=== PATIENT | male | born 1980 | race Caucasian/White ===

== ENCOUNTER 2016-11-29 10:41 | Observation (INO) ==
[2016-11-29] MEDS ORDERED: Ondansetron 4 MG/2 ML VIAL IVP PRN (14:33)
[2016-11-29] MEDS ORDERED: *HR* HYDROmorphone (PF) 1 MG/ML SYRINGE IVP PRN (14:33)
--- NOTE | 2016-11-29 14:40 | General Surg History&Physical ---
Date of Encounter: 11/29/16 Time of Encounter: 14:37 Assessment and Plan (1) Perianal abscess Current Visit: No Status: Acute The assessment and plan as outlined above was discussed with the patient and/or family members who expressed understanding and agreement. All questions were answered. I explained to the patient at this time he has evidence of induration of the perianal area with no true abscess. I do agree with IV antibiotics and pain control and will determine whether or not the area resolves on its own, spontaneously drains, or requires incision and drainage procedure. Will follow. Patient agrees with the above plan. History of Present Illness Chief complaint: Perianal pain HPI: Mr. Mc is a 36 year old male with a past medical history significant for hypertension, anxiety, arthritis, and back pain/cervical radiculopathy states that yesterday he had the onset of perianal pain and some swelling. He said the pain has been continuous in nature and because of the persistent nature that lasted throughout the night. He states he does have some mucous discharge and has had some mild blood with wiping. The tenderness is located in the same area he had a previous perianal abscess drainage procedure performed in [place] earlier this year. He states that the incision site with the drainage was performed and just healed possibly 2-3 weeks ago. He admits to having different symptoms at this time including feverish/sweating and a low temperature. He admits to some nausea. He was seen at [facility] hand has been transferred to my service for further evaluation. Past Med Surg Social Fam HX - Past Medical History Medical history: GERD, hyperlipidemia, hypertension, other Psychiatric history: anxiety, depression - Past Surgical History Surgical History: cholecystectomy, orthopedic, other, other (Previous incision and drainage procedure of perianal abscess) - Social History Smoking Status: Current every day smoker Smokeless Tobacco Status: No Alcohol use: none Drug use: none - Family History Grandfather Hx Family Neurologic Disorders: Yes (Stroke) Medications and Allergies Omeprazole [PriLOSEC] 40 mg PO DAILY 01/01/15 [History] Paroxetine [Paxil] 20 mg PO DAILY 01/01/15 [History] Amlodipine Besylate 10 mg PO DAILY 09/15/16 [History] Carvedilol [Coreg] 25 mg PO DAILY 09/15/16 [History] Gabapentin [Neurontin] 300 mg PO DAILY 09/15/16 [History] Ibuprofen [Motrin] 800 mg PO Q8HR PRN 09/15/16 [History] Lisinopril [Zestril] 40 mg PO DAILY 09/15/16 [History] 3 Allergy/AdvReac Type Severity Reaction Status Date / Time morphine Allergy Hives Verified 09/15/16 12:59 vancomycin Allergy Rash Verified 09/15/16 12:59 venlafaxine [From Effexor] Allergy See Verified 09/15/16 12:59 Comments Review of Systems All systems PM: A 10-system review of systems was performed and is negative for pertinent findings except as documented above in the HPI. General Surgery Exam Initial Vital Signs Pulse Resp BP Pulse Ox 82 19 148/99 98 11/29/16 12:51 11/29/16 12:51 11/29/16 12:51 11/29/16 12:51 - Eyes PERRL, normal ocular movement - Respiratory normal expansion, normal respiratory effort, clear to auscultation - Cardiovascular Cardiovascular exam: Present: RRR, no murmurs/rubs/gallops - Abdomen Abdomen general surgery: Present: bowel sounds present, soft, non tender - Rectum Rectum: Present: other (At the 6 o'clock position is evidence of a previous incision that healed near the anus. There is an indurated region with some tenderness palpated but no fluctuance identified. No erythema or active drainage palpation. The area of induration is approximately 1.5 just 2 cm in diameter.) - Neurologic Present: CN 2-12 grossly intact, normal coordination, normal sensation - Musculoskeletal Present: other (No clubbing, cyanosis, or edema) Results - Labs 11/30/16 05:08 All other labs normal. - Imaging CT scan - pelvis: report reviewed, image reviewed (Some mild induration noted near the area of the anus but no abscess or fluid collections in the pelvic region near the rectum.)
[2016-11-29] MEDS: Piperacillin/Tazobactam 3.375 GM in D5% in Water (Mini-Bag+) 100 ML IVPB SCH ×2 (15:24→23:36)
[2016-11-29] MEDS: *HR* OxyCODONE/APAP 10/325 TABLET PO PRN (15:33)
[2016-11-29] MEDS: *HR* Heparin 5,000 UNIT/ML VIAL SQ SCH (17:08)
[2016-11-29] MEDS ORDERED: Ibuprofen 800 MG TABLET PO PRN (18:26)
[2016-11-29] MEDS: *HR* HYDROmorphone (PF) 1 MG/ML SYRINGE IVP PRN ×2 (20:06→23:04)
[2016-11-30] MEDS: *HR* HYDROmorphone (PF) 1 MG/ML SYRINGE IVP PRN ×7 (02:17→21:21)
[2016-11-30 05:19] LABS: Basophils % 0.4 %; Eosinophils # 0.2 K/mcL (0.0-0.6); Eosinophils % 2.5 %; Hemoglobin 15.3 g/dL (12.9-16.9); Immature Granulocytes % 0.4 % (0-4); Lymphocytes # 2.8 K/mcL (0.6-4.6); Lymphocytes % 33.1 %; Mean Corpuscular HGB Conc 32.6 g/dL (31.6-35.5); Mean Corpuscular Hemoglobin 30.2 pg (28.0-33.3); Mean Corpuscular Volume 92.9 fL (83.0-100.0); Mean Platelet Volume 10.5 fL (9.4-12.4); Monocytes # 0.8 K/mcL (0.0-1.3); Monocytes % 9.8 %; Neutrophils # 4.5 K/mcL (1.6-8.9); Platelet Count 229 K/mcL (140-400); Red Blood Count 5.06 M/mcL (4.19-5.50); Red Cell Distribution Width 13.5 % (11.5-14.5); Segmented Neutrophils % 53.8 %
[2016-11-30] MEDS: *HR* Heparin 5,000 UNIT/ML VIAL SQ SCH ×2 (05:20→18:00)
[2016-11-30] MEDS: Gabapentin 300 MG CAPSULE PO SCH (08:44)
[2016-11-30] MEDS: Piperacillin/Tazobactam 3.375 GM in D5% in Water (Mini-Bag+) 100 ML IVPB SCH ×2 (08:44→16:22)
[2016-11-30] MEDS: Lisinopril 20 MG TABLET PO SCH (08:44)
[2016-11-30] MEDS: amLODIPine 5 MG TABLET PO SCH (08:44)
[2016-11-30] MEDS: Pantoprazole 40 MG VIAL IVP SCH (08:44)
--- NOTE | 2016-11-30 13:49 | General Surgery Progress Note ---
Date of Encounter: 11/30/16 Time of Encounter: 13:48 - Assessment and Plan (1) Perianal abscess Current Visit: No Status: Acute I explained to the patient that I do think it would be appropriate to consider performing an incision and drainage procedure in the OR setting tomorrow. This also may include opening of a sinus tract versus placement of a seton. Discussed with the patient and he agrees to the above plan. Subjective Patient reports: other (The patient states that the perianal bleeding/oozing has stopped. Still perianal pain present.) Objective Intake and Output 11/29/16 11/30/16 11/30/16 23:59 07:59 15:59 Intake Total 950 / 950 100 / 100 220 / 220 Output Total 0 / 0 0 / 0 Balance 950 / 950 100 / 100 220 / 220 Intake: IV Fluids 100 / 100 100 / 100 100 / 100 Zosyn 3.375 GM In 100 / 100 100 / 100 100 / 100 Dextrose 5% (Minibag+) 100 ML 100 ML @ 25 mls/hr IVPB Q8HR COUNTS INCLUDE 234 BEDS AT THE [facility] Rx#: [id number] Oral 850 / 850 0 / 0 120 / 120 Output: Urine 0 / 0 0 / 0 Other: Meal Breakfast Percent of Meal Consumed 100% # Voids 1 Weight 113.398 kg 116 kg Patient Weight 11/30/16 23:59 Weight 116 kg - General physical appearance no distress - Rectum other (Noted firmness at the 6 clock position appears decreased in size. No drainage on palpation. Tenderness to palpation.) - Labs 11/30/16 05:08 Consult Discharge Plan - Plan Referrals: Marcelo Campbell MD [Primary Care Provider] -
[2016-11-30] MEDS: *HR* OxyCODONE/APAP 10/325 TABLET PO PRN ×2 (15:49→22:44)
[2016-12-01] MEDS ORDERED: 0.9 % Sodium Chloride 1,000 ML IVC SCH (00:01)
[2016-12-01] MEDS: *HR* HYDROmorphone (PF) 1 MG/ML SYRINGE IVP PRN ×9 (00:22→22:49)
[2016-12-01] MEDS: Piperacillin/Tazobactam 3.375 GM in D5% in Water (Mini-Bag+) 100 ML IVPB SCH ×3 (00:22→23:39)
[2016-12-01] MEDS: *HR* Heparin 5,000 UNIT/ML VIAL SQ SCH ×2 (06:36→18:28)
[2016-12-01] MEDS: Pantoprazole 40 MG VIAL IVP SCH (08:03)
[2016-12-01] MEDS: *HR* OxyCODONE/APAP 10/325 TABLET PO PRN ×3 (08:04→23:40)
[2016-12-01] MEDS: Gabapentin 300 MG CAPSULE PO SCH (08:04)
[2016-12-01] MEDS: Lisinopril 20 MG TABLET PO SCH (08:05)
[2016-12-01] MEDS: amLODIPine 5 MG TABLET PO SCH (08:05)
--- NOTE | 2016-12-01 12:05 | Anesthesia Evaluation PreOp ---
Date of Encounter: 12/01/16 Time of Encounter: 12:08 - Past History Planned Operation: I & D perianal abcess Cardiac History: HTN, Hyperlipidemia Pulmonary History: Smoker [employer]SEM[employer]ER History: Other (cervical and lumbar radiculopathy) Other Medical History: GERD, Other (Anxiety) Anesthesia History: No Prior Anesthetic Complications, Past Anesthesia (myles, ortho, I&D perianal abcess, acdf) Alcohol Use: none Drug use: none Medications and Allergies Omeprazole [PriLOSEC] 40 mg PO DAILY 01/01/15 [History] Paroxetine [Paxil] 20 mg PO DAILY 01/01/15 [History] Amlodipine Besylate 10 mg PO DAILY 09/15/16 [History] Carvedilol [Coreg] 25 mg PO BID 09/15/16 [History] Gabapentin [Neurontin] 300 mg PO HS 09/15/16 [History] Ibuprofen [Motrin] 800 mg PO Q8HR PRN 09/15/16 [History] Lisinopril [Zestril] 40 mg PO DAILY 09/15/16 [History] 3 Allergy/AdvReac Type Severity Reaction Status Date / Time morphine Allergy Hives Verified 09/15/16 12:59 vancomycin Allergy Rash Verified 09/15/16 12:59 venlafaxine [From Effexor] Allergy See Verified 09/15/16 12:59 Comments - Meds/Allergy Pre-op Review Medications Reviewed: Yes Allergies Reviewed: Yes Beta Blockers on Current Med List: Yes If Beta Blockers taken, Date/Time (Last Dose taken): today 804 Anesthesia Results - Labs 11/30/16 05:08 Anesthesia Exam Selected Entries 12/01/16 07:21 Temperature 98.6 F Pulse Rate 67 Respiratory Rate 17 Blood Pressure 127/101 O2 Sat by Pulse Oximetry 97 Weight: 116kg NPO (# of Hours): 8 Pain Scale: 3 Pain Scale Used: Numeric (1 - 10) - HEENT Pupil (Motor): EOMI Mallampati: II Teeth: Normal Oral Opening: Greater than 3 - [employer]SEM[employer]ER LOC: Oriented [employer] Motor: Normal RUE, Normal LUE, Normal RLE, Normal LLE, Normal Face [employer] Sensory: Normal: RUE, LUE, RLE, LLE, Face - Cardiac Rhythm: Regular Murmur: None - Pulmonary Breath Sounds: bilateral Clear Respiratory Effort: Symmetrical Anesthesia Assess/Plan ASA Score: 2 Modified Salazar Scale for Level of Consciousness: Cooperative, oriented, and tranquil Anesthetic Plan: General Monitoring Plan: Standard Monitors Recovery Plan: PACU (discussed GA, questions answered and agrees to proceed)
[2016-12-01] MEDS ORDERED: *HR* Midazolam HCl 2 MG/2 ML VIAL ONE (12:19)
[2016-12-01] MEDS ORDERED: *HR* Propofol 200 MG/20 ML VIAL IVP ONE (12:19)
[2016-12-01] MEDS ORDERED: Lidocaine -MPF 4% 5 ML AMPUL ONE (12:19)
[2016-12-01] MEDS ORDERED: Lidocaine -MPF 2% 2 ML VIAL ONE (12:19)
[2016-12-01] MEDS ORDERED: Ondansetron 4 MG/2 ML VIAL ONE (12:19)
[2016-12-01] MEDS ORDERED: *HR* Rocuronium Bromide 50 MG/5 ML VIAL ONE (12:19)
[2016-12-01] MEDS ORDERED: *HR* FentaNYL (PF) 100 MCG/2 ML VIAL ONE (12:19)
[2016-12-01] MEDS ORDERED: Dexamethasone 4 MG/ML VIAL ONE (12:19)
[2016-12-01] MEDS ORDERED: EPHEDrine 50 MG/ML VIAL ONE (13:09)
[2016-12-01] MEDS ORDERED: Lidocaine 1% 20 ML MDV ONE (13:12)
[2016-12-01] MEDS ORDERED: Lidocaine Jelly 2% 30 ML JEL..ML. ONE (13:17)
[2016-12-01] MEDS ORDERED: *HR* Labetalol 20 MG/4 ML SYRINGE IVP PRN (13:19)
[2016-12-01] MEDS ORDERED: *HR* Promethazine 25 MG/ML VIAL IVP PRN (13:19)
[2016-12-01] MEDS ORDERED: Ondansetron 4 MG/2 ML VIAL IVP ONE (13:19)
--- NOTE | 2016-12-01 13:33 | Operative Note ---
Date of procedure: 12/01/16 Pre-op diagnosis: perianal abscess Post-op diagnosis: same Procedure: 1. Rectal exam under anesthesia. 2. Incision and drainage of perianal abscess. Anesthesia: GETA Surgeon: Lowell Larson Estimated blood loss (cc): 2 Condition: stable Disposition: PACU Procedure in Detail: Date of surgery: 12/01/16 After properly did not find the patient, the patient was brought to the operating room and placed in the supine position. Proper IV sedation was achieved followed by general endotracheal intubation, the patient was placed in the jackknife prone position and the perianal tissue was prepped and draped in a normal fashion. Timeout was performed noting the patient's name and type of procedure to be performed. A pudendal block was performed with 1% lidocaine and the perianal tissue was infiltrated with 1% lidocaine as well. Rectal examination demonstrated an area of roughness at the 6 o'clock position within the anal canal. This is consistent with the patient's previous surgical procedure. A small area of induration was noted on the exterior surface of the anal canal at approximately the 6 o'clock position. This also was consistent with some induration in the previously palpated perianal abscess performed days prior to surgery. Examination demonstrated a small pinhole opening with serosanginous drainage. A small probe was placed through this opening which tract for approximately 1.5-2 cm and a 15 blade scalpel was used to make an incision over the anoderm overlying the probe. This allowed for exposure and to the previous scar tissue and visualization of the external sphincter muscles. The small probe was noted to travel posterior to the sphincter muscle but then abruptly ended with no evidence of origination within the anal canal. Due to the blind end of the sinus tract the decision was made to keep this area open and not try to perform a seton placement as there was no opening within the anal canal. Additional probing of the area did not show any evidence of loculation or abscess cavities. The decision was made to complete the surgical procedure and noted that there was no opening large enough for any type of packing. Gelfoam with 1% lidocaine was was within the anal canal. The patient was transported to the stretcher in the supine position. Needle, sponge, and instrument counts were correct 2 and the patient was aroused from IV sedation and transported to the recovery room in stable condition after being extubated.
[2016-12-01] MEDS ORDERED: Famotidine 20 MG/2 ML VIAL IVP ONE (14:51)
[2016-12-01] MEDS ORDERED: Acetaminophen IV 1,000 MG/100 ML INFUS..BTL IVPB ONE (14:52)
--- NOTE | 2016-12-01 15:25 | Discharge Summary ---
<Radha Kumar - Last Filed: 12/01/16 15:48> Date of Encounter: 12/01/16 Time of Encounter: 15:48 - Discharge Diagnosis (1) Perianal abscess Priority: Primary Status: Acute - Discharge Medications Prescriptions: OxyCODONE/APAP 10/325 [Percocet 10/325 MG] 1 each PO Q4HR PRN #42 tablet PRN Reason: Pain Amoxicillin/Clavulanate [Augmentin] 875 mg PO BIDWM #14 tablet Docusate Sodium [Colace] 100 mg PO BID #60 capsule Home Medications: Omeprazole [PriLOSEC] 40 mg PO DAILY 01/01/15 [History] Paroxetine [Paxil] 20 mg PO DAILY 01/01/15 [History] Amlodipine Besylate 10 mg PO DAILY 09/15/16 [History] Carvedilol [Coreg] 25 mg PO BID 09/15/16 [History] Gabapentin [Neurontin] 300 mg PO HS 09/15/16 [History] Ibuprofen [Motrin] 800 mg PO Q8HR PRN 09/15/16 [History] Lisinopril [Zestril] 40 mg PO DAILY 09/15/16 [History] Amoxicillin/Clavulanate [Augmentin] 875 mg PO BIDWM #14 tablet 12/01/16 [Rx] Docusate Sodium [Colace] 100 mg PO BID #60 capsule 12/01/16 [Rx] OxyCODONE/APAP 10/325 [Percocet 10/325 MG] 1 each PO Q4HR PRN #42 tablet [Rx] Allergies/Adverse Reactions: 3 Allergy/AdvReac Type Severity Reaction Status Date / Time morphine Allergy Hives Verified 09/15/16 12:59 vancomycin Allergy Rash Verified 09/15/16 12:59 venlafaxine [From Effexor] Allergy See Verified 09/15/16 12:59 Comments General Surgery Exam Initial Vital Signs Pulse Resp BP Pulse Ox 82 19 148/99 98 11/29/16 12:51 11/29/16 12:51 11/29/16 12:51 11/29/16 12:51 Date of admission: 11/29/16 12:34 Primary care physician: Marcelo Campbell MD Discharging clinician: Lowell Kumar) - Patient Status Disposition: Home, Self-Care Condition: Good Overall status at discharge: patient is progressing back to baseline - Discharge Instructions Follow Up With: Lowell Larson MD [Partnered Physician] - 12/08/16 4:00 pm Marcelo Campbell MD [Primary Care Provider] - 12/09/16 11:00 am Additional Instructions: Take your antibiotics as directed in till they are gone. Do not stop antibiotics without talking to your provider. -No lifting, pulling, pushing, greater than 15 pounds for 2 weeks. -Okay to climb stairs. -May resume driving when you have been off narcotics for 24 hours and you are safe to react in the car. -You may shower beginning tomorrow. Wash the incisions daily with soap and water and pat dry. -No swimming, tough bath, or soaking for 2 weeks. -Return to the office for follow-up as directed. -Report any increase in discomfort or any new fevers greater than 101.5 degrees and signs of infection such as redness, swelling, or drainage from the incisions. -Take pain medication as directed. - You may break the Percocet tablets in half if they are too strong. -You may take 600 mg ibuprofen ([id number]) every 8 hours, but do not take extra Tylenol while you are taking the narcotics. -Take stool softener is until seen in follow-up. - Diet and Activity Activity: increase activity as tolerated, resume usual activities as tolerated Diet: advance to your usual diet - Hospital Course Hospital course: Mr. Mc is a 36 year old male who presented for perianal pain and some swelling. He said the pain had been continuous in nature and because of the persistent nature that lasted throughout the night. He stated he does have some mucous discharge and has had some mild blood with wiping. The tenderness was located in the same area he had a previous perianal abscess drainage procedure performed in [place] earlier this year. He states that the incision site with the drainage was performed and just healed possibly 2-3 weeks ago. He admits to having different symptoms at this time including feverish/sweating and a low temperature. He admits to some nausea. He was seen at [facility] hand has been transferred to my service for further evaluation. He was taken to the OR for a planned incision and drainage. No purulent material was noted and the area was more consistent with chronic scar tissue. No packing was placed. We will begin discharge planning for home in the next 24-48 hours when he is ambulating and voiding without difficulty. Tolerating a diet without vomiting and discomfort is well-managed. He will be discharged with 7 days of Augmentin , Percocet, and stool softener's. Follow-up in the office in 1 to 2 weeks as directed. - Time Spent with Patient Total time spent providing and/or coordinating discharge services: <Lowell Larson - Last Filed: 12/03/16 08:13> Date of Encounter: 12/02/16 - Discharge Diagnosis (1) Perianal abscess Status: Acute General Surgery Exam Initial Vital Signs Pulse Resp BP Pulse Ox 82 19 148/99 98 11/29/16 12:51 11/29/16 12:51 11/29/16 12:51 11/29/16 12:51 Date of admission: 11/29/16 12:34 Primary care physician: Marcelo Campbell MD - Hospital Course Hospital course: Mr. Mc is a 36 year old male - Time Spent with Patient Total time spent providing and/or coordinating discharge services:
--- NOTE | 2016-12-01 15:28 | Anesthesia Evaluation Post Op ---
Date of Encounter: 12/01/16 Time of Encounter: 14:45 - Vital Signs Vital Signs: Vital Signs/O2 Sat/Glucose, Most Current Temp Pulse Resp BP Pulse Ox 12/01/16 15:17 98.0 F 76 16 132/88 94 12/01/16 15:07 80 16 134/93 95 12/01/16 14:57 76 18 129/88 95 12/01/16 14:47 97.4 F L 69 18 134/93 95 12/01/16 14:33 79 18 138/99 94 12/01/16 14:23 77 18 139/88 92 12/01/16 14:13 98.7 F 82 18 124/88 97 12/01/16 14:03 81 20 132/84 95 12/01/16 13:53 88 20 133/84 93 12/01/16 13:43 98.8 F 91 16 177/95 95 12/01/16 11:54 97.9 F 69 16 123/81 95 - Lungs Lungs: Clear Ascult./Percussion - Airway Airway: Non-obstructed - Cardiovascular Regular Rate - Mental Status Mental Status: Alert & Oriented, Answers Appropriately - Pain Pain Scale: 5 Pain Scale used: Numeric (1 - 10) - Hydration Hydration: Ice chips - Discharge PostOp Status: Discharge Patient to home Anes Supervising Prov Stmt: Pt seen/evaluated, R&B discussed, questions answered and consent obtained. - MD Aroldo
[2016-12-01] MEDS ORDERED: Ondansetron 4 MG/2 ML VIAL IVP PRN (17:48)
[2016-12-01] MEDS ORDERED: Ibuprofen 800 MG TABLET PO PRN (17:48)
[2016-12-02] MEDS: *HR* HYDROmorphone (PF) 1 MG/ML SYRINGE IVP PRN ×2 (02:46→06:20)
[2016-12-02] MEDS: *HR* Heparin 5,000 UNIT/ML VIAL SQ SCH (06:22)
[2016-12-02 07:26] VITALS: BP 147/95
[2016-12-02] MEDS: *HR* OxyCODONE/APAP 10/325 TABLET PO PRN (07:42)
[2016-12-02] MEDS: Piperacillin/Tazobactam 3.375 GM in D5% in Water (Mini-Bag+) 100 ML IVPB SCH (07:43)
[2016-12-02] MEDS ORDERED: Ibuprofen 800 MG TABLET PO SCH (08:05)
[2016-12-02] MEDS ORDERED: Ketorolac 15 MG/ML VIAL IVP ONE (08:06)
[2016-12-02] MEDS ORDERED: FLUARIX QUAD 2017-18 36MOS UP/PF 0.5 ML SYRINGE IM ONE (08:53)
[2016-12-02] MEDS ORDERED: Pantoprazole 40 MG VIAL IVP SCH (09:00)
[2016-12-02] MEDS ORDERED: Gabapentin 300 MG CAPSULE PO SCH (09:00)
[2016-12-02] MEDS ORDERED: Lisinopril 20 MG TABLET PO SCH (09:00)
[2016-12-02] MEDS ORDERED: amLODIPine 5 MG TABLET PO SCH (09:00)
== END 2016-12-02 09:38 | disposition home or self-care (01) ==
LOC: 2NENU
PROVIDERS: ADMIT Surgery; ATTEND Surgery

== ENCOUNTER 2019-03-28 12:30 | Inpatient (IN) ==
[2019-03-28] MEDS ORDERED: Isovue-370 500 ML BOTTLE IVP ONE (13:51)
[2019-03-28] MEDS ORDERED: Ondansetron 4 MG/2 ML VIAL IVP ONE (13:51)
[2019-03-28] MEDS ORDERED: Piperacillin/Tazobactam 3.375 GM in 0.9 % Sodium Chloride Mini Bag 100 ML IVPB ONE (13:51)
[2019-03-28] MEDS ORDERED: 0.9 % Sodium Chloride 1,000 ML IVC ONE (13:51)
[2019-03-28] MEDS ORDERED: *HR* FentaNYL (PF) 100 MCG/2 ML VIAL IVP ONE (13:53)
[2019-03-28 13:57] LABS: Bilirubin,Urine Moderate (Negative); Blood,Urine Negative (Negative); Clarity,Urine Clear (Clear); Color,Urine Dark Yellow (Yellow); Glucose,Urine (UA) Normal (Normal); Ketones,Urine Trace mg/dL (Negative); Leukocyte Esterase,Urine Trace (Negative); Nitrite,Urine Negative (Negative); Protein,Urine 30 mg/dL (Neg-Trace); Specific Gravity,Urine > 1.030 (1.010-1.025); Urobilinogen,Urine Normal (Normal)
[2019-03-28 13:59] LABS: Bacteria,Urine None Seen per hpf (None-Few); Hyaline Casts,Urine Moderate per lpf (None-Few); RBC,Urine 0-3 per hpf (0-3); Squamous Epithelial Cell,Urine Many per lpf (None-Few)
[2019-03-28 14:18] LABS: BUN/Creatinine Ratio 11 (6-26); Blood Urea Nitrogen 10 mg/dL (6-20); Calcium 9.8 mg/dL (8.6-10.3); Carbon Dioxide 27 mEq/L (23-29); Chloride 109 mEq/L (98-107); Glucose 114 mg/dL (70-105); Osmolality,Calculated 294 (280-300); Potassium 3.5 mEq/L (3.5-5.1); Sodium 142 mEq/L (136-145); eGFR For African Americans > 60 (> 60); eGFR For Non-African Americans > 60 (> 60)
[2019-03-28 14:19] LABS: Basophils # 0.1 K/mcL (0.0-0.2); Basophils % 0.5 %; Eosinophils # 0.1 K/mcL (0.0-0.6); Eosinophils % 1.1 %; Hematocrit 42.9 % (37.5-50.1); Hemoglobin 15.1 g/dL (12.9-16.9); Immature Granulocytes % 0.2 % (0-4); Lymphocytes # 2.1 K/mcL (0.6-4.6); Lymphocytes % 22.1 %; Mean Corpuscular HGB Conc 35.2 g/dL (31.6-35.5); Mean Corpuscular Hemoglobin 30.7 pg (28.0-33.3); Mean Corpuscular Volume 87.2 fL (83.0-100.0); Mean Platelet Volume 10.7 fL (9.4-12.4); Monocytes # 0.4 K/mcL (0.0-1.3); Monocytes % 4.7 %; Neutrophils # 6.7 K/mcL (1.6-8.9); Platelet Count 285 K/mcL (140-400); Red Blood Count 4.92 M/mcL (4.19-5.50); Red Cell Distribution Width 12.6 % (11.5-14.5); Segmented Neutrophils % 71.4 %; White Blood Count 9.4 K/mcL (4.3-11.1)
[2019-03-28] MEDS ORDERED: Isovue-370 500 ML BOTTLE RC ONE (15:08)
[2019-03-28] MEDS ORDERED: *HR* HYDROmorphone (PF) 1 MG/ML SYRINGE IVP ONE (15:32)
[2019-03-28] MEDS ORDERED: Naloxone 0.4 MG/ML INJ IVP PRN (16:13)
[2019-03-28] MEDS ORDERED: Ondansetron 4 MG/2 ML VIAL IVP PRN (16:13)
[2019-03-28] MEDS ORDERED: Dextrose Gel 15 GM/37.5 ML TUBE PO PRN ×2 (16:20)
[2019-03-28] MEDS ORDERED: *HR* Dextrose 50 % in Water (Syg) 50 ML SYRINGE IVP PRN (16:20)
[2019-03-28] MEDS ORDERED: D5% in Water 1,000 ML IVC PRN (16:20)
[2019-03-28] MEDS ORDERED: *HR* FentaNYL PATCH 25 MCG PATCH TD SCH (16:30)
[2019-03-28] MEDS ORDERED: MetroNIDAZOLE 500 MG/100 ML 500 MG/100 ML BAG IVPB SCH (17:00)
[2019-03-28 17:16] LABS: Amylase 47 Units/L (29-103); Lipase 23 Units/L (11-82)
[2019-03-28] MEDS ORDERED: Acetaminophen IV 1,000 MG/100 ML INFUS..BTL IVPB PRN (19:43)
[2019-03-28] MEDS: Insulin LISPRO 300 UNITS/3 ML VIAL SQ SCH ×2 (20:01→23:18)
[2019-03-28] MEDS: *HR* HYDROmorphone (PF) 1 MG/ML SYRINGE IVP PRN (20:22)
[2019-03-28] MEDS: MetroNIDAZOLE 500 MG/100 ML 500 MG/100 ML BAG IVPB SCH (20:26)
[2019-03-28] MEDS: *HR* Heparin 5,000 UNIT/ML VIAL SQ SCH (20:29)
[2019-03-28] MEDS: D5% in Lactated Ringers 1,000 ML IVC SCH (22:25)
[2019-03-29] MEDS: *HR* HYDROmorphone (PF) 1 MG/ML SYRINGE IVP PRN (02:24)
[2019-03-29 03:18] LABS: Basophils % 0.3 %; Eosinophils # 0.3 K/mcL (0.0-0.6); Eosinophils % 2.9 %; Hematocrit 37.8 % (37.5-50.1); Hemoglobin 13.4 g/dL (12.9-16.9); Immature Granulocytes % 0.2 % (0-4); Lymphocytes # 3.8 K/mcL (0.6-4.6); Lymphocytes % 43.8 %; Mean Corpuscular HGB Conc 35.4 g/dL (31.6-35.5); Mean Corpuscular Hemoglobin 30.9 pg (28.0-33.3); Mean Corpuscular Volume 87.1 fL (83.0-100.0); Monocytes # 0.6 K/mcL (0.0-1.3); Monocytes % 7.1 %; Platelet Count 232 K/mcL (140-400); Red Blood Count 4.34 M/mcL (4.19-5.50); Red Cell Distribution Width 12.3 % (11.5-14.5); Segmented Neutrophils % 45.7 %; White Blood Count 8.7 K/mcL (4.3-11.1)
[2019-03-29 03:38] LABS: BUN/Creatinine Ratio 9 (6-26); Blood Urea Nitrogen 6 mg/dL (6-20); C-Reactive Protein < 5 mg/L (Less than 10); Calcium 8.8 mg/dL (8.6-10.3); Carbon Dioxide 26 mEq/L (23-29); Chloride 108 mEq/L (98-107); Glucose 101 mg/dL (70-105); Magnesium 2.1 mg/dL (1.6-2.6); Osmolality,Calculated 288 (280-300); Phosphorous 3.8 mg/dL (2.7-4.5); Sodium 140 mEq/L (136-145); eGFR For African Americans > 60 (> 60); eGFR For Non-African Americans > 60 (> 60)
[2019-03-29] MEDS: MetroNIDAZOLE 500 MG/100 ML 500 MG/100 ML BAG IVPB SCH ×3 (04:22→20:53)
[2019-03-29] MEDS: *HR* Heparin 5,000 UNIT/ML VIAL SQ SCH ×3 (05:25→20:58)
[2019-03-29] MEDS: Insulin LISPRO 300 UNITS/3 ML VIAL SQ SCH ×3 (05:50→17:55)
[2019-03-29] MEDS: D5% in Lactated Ringers 1,000 ML IVC SCH (09:06)
[2019-03-29] MEDS: Potassium Chloride 20 MEQ, Lidocaine 1% 2 ML in 0.9 % Sodium Chloride 250 ML IVPB SCH ×2 (11:18→15:35)
[2019-03-29] MEDS ORDERED: SODIUM CHLORIDE/NAHCO3/KCL/PEG 4,000 ML SOLN.RECON PO ONE (17:00)
[2019-03-29] MEDS: Gabapentin 300 MG CAPSULE PO SCH (20:51)
[2019-03-30] MEDS: Insulin LISPRO 300 UNITS/3 ML VIAL SQ SCH ×5 (00:23→22:45)
[2019-03-30] MEDS: Ondansetron 4 MG/2 ML VIAL IVP PRN (00:42)
[2019-03-30 03:20] LABS: Alanine Aminotransferase 15 Units/L (7-52); Albumin 3.8 g/dL (3.5-5.7); Alkaline Phosphatase 63 Units/L (34-104); Aspartate Amino Transferase 13 Units/L (13-39); BUN/Creatinine Ratio 7 (6-26); Bilirubin,Total 0.5 mg/dL (0.3-1.0); Blood Urea Nitrogen 5 mg/dL (6-20); Calcium 8.9 mg/dL (8.6-10.3); Carbon Dioxide 28 mEq/L (23-29); Chloride 106 mEq/L (98-107); Globulin 1.9 g/dL (2.4-3.5); Glucose 89 mg/dL (70-105); Magnesium 2.2 mg/dL (1.6-2.6); Osmolality,Calculated 289 (280-300); Phosphorous 4.4 mg/dL (2.7-4.5); Potassium 3.4 mEq/L (3.5-5.1); Sodium 141 mEq/L (136-145); Total Protein 5.7 g/dL (6.4-8.9); eGFR For African Americans > 60 (> 60); eGFR For Non-African Americans > 60 (> 60)
[2019-03-30] MEDS: MetroNIDAZOLE 500 MG/100 ML 500 MG/100 ML BAG IVPB SCH ×3 (05:15→21:13)
[2019-03-30] MEDS: *HR* Heparin 5,000 UNIT/ML VIAL SQ SCH ×3 (05:19→21:19)
[2019-03-30] MEDS ORDERED: Simethicone 40 MG/0.6 ML MLS IR ONE (07:02)
[2019-03-30] MEDS ORDERED: Simethicone 40 MG/0.6 ML MLS PO PRN (08:01)
[2019-03-30] MEDS: Lisinopril 20 MG TABLET PO SCH (09:19)
[2019-03-30] MEDS: carvediloL 25 MG TABLET PO SCH (09:19)
[2019-03-30] MEDS: amLODIPine 5 MG TABLET PO SCH (09:19)
[2019-03-30] MEDS ORDERED: Propofol 500 MG/50 ML INFUS..BTL ONE (12:55)
[2019-03-30] MEDS ORDERED: Lidocaine -MPF 2% 2 ML VIAL ONE (13:11)
[2019-03-30] MEDS: Gabapentin 300 MG CAPSULE PO SCH (21:19)
[2019-03-31] MEDS: *HR* Heparin 5,000 UNIT/ML VIAL SQ SCH (04:40)
[2019-03-31] MEDS: Insulin LISPRO 300 UNITS/3 ML VIAL SQ SCH (04:40)
[2019-03-31] MEDS: MetroNIDAZOLE 500 MG/100 ML 500 MG/100 ML BAG IVPB SCH (05:32)
[2019-03-31 07:45] VITALS: BP 129/85
[2019-03-31 07:45] LABS: BUN/Creatinine Ratio 6 (6-26); Blood Urea Nitrogen 6 mg/dL (6-20); Carbon Dioxide 32 mEq/L (23-29); Chloride 102 mEq/L (98-107); Glucose 94 mg/dL (70-105); Magnesium 2.3 mg/dL (1.6-2.6); Osmolality,Calculated 293 (280-300); Phosphorous 4.7 mg/dL (2.7-4.5); Potassium 3.2 mEq/L (3.5-5.1); Sodium 143 mEq/L (136-145); eGFR For African Americans > 60 (> 60); eGFR For Non-African Americans > 60 (> 60)
[2019-03-31] MEDS: carvediloL 25 MG TABLET PO SCH (09:26)
[2019-03-31] MEDS: amLODIPine 5 MG TABLET PO SCH (09:27)
[2019-03-31] MEDS: Lisinopril 20 MG TABLET PO SCH (09:28)
[2019-03-31] MEDS: Ondansetron 4 MG/2 ML VIAL IVP PRN (09:31)
== END 2019-03-31 11:30 | disposition home or self-care (01) | DRG 387 ==
LOC: EMEROOARM 12:30 → 3BNU 12:30 → SUATTDRO 16:53 → 3BNU 17:51
PROVIDERS: ADMIT Internal Medicine; ATTEND Internal Medicine
PROC: ENDOCBX (2019-03-30 13:00)